=== PATIENT | female | born 1990 | race Asian ===

== ENCOUNTER 2025-01-05 14:53 | Emergency (ER) | payer MEDICAID, SELFPAY ==
--- NOTE | ~2025-01-05 | CT_ITS ---
EXAMINATION: CT HEAD WITHOUT CONTRAST CLINICAL INFORMATION: Dizziness COMPARISON: None available. TECHNIQUE: Contiguous axial imaging was performed from the skull base to vertex without intravenous administration of contrast. This CT examination was performed using dose optimization techniques as appropriate, variously including the following: *Automated exposure control *Adjustment of mA and/or kV according to patient size (this includes techniques or standardized protocols for targeted exams where dose is matched to indication/reason for exam; i.e. extremities or head) *Use of iterative reconstruction technique DLP: 624 FINDINGS: No acute intra-axial, extra-axial bleed, masses or midline shift. There is no acute infarct in evolution. The crane to white matter differentiation is maintained normal. The lateral ventricles are asymmetrical but normal size. Bone windows reveal no calvarial abnormality. There is no scalp soft tissue abnormality. Bilateral paranasal sinuses and mastoid air cells are well-aerated. Visualized bilateral optic globes, optic nerve and the periorbital soft tissues are normal. CT/CT head/brain wo IV con IMPRESSION: No acute intracranial process seen. Electronically signed by: Rodrigue Adams MD 01/05/2025 04:45 PM EDT
[2025-01-05 14:58] VITALS: BP 108/69; PULSE 76; RESP 18; TEMP 36.6; O2SAT 97; BMI 23.9
--- NOTE | 2025-01-05 14:59 | ECG_ITS ---
Test Reason : DIZZINESS Blood Pressure : */* mmHG Vent. Rate : 75 BPM Atrial Rate : 75 BPM P-R Int : 144 ms QRS Dur : 80 ms QT Int : 380 ms P-R-T Axes : 61 36 37 degrees QTcB Int : 424 ms Normal sinus rhythm Normal ECG No previous ECGs available Referred By: Jace Dallas Electronically Signed By: Connor Morgan
--- NOTE | 2025-01-05 15:00 | ED_ITS ---
HPI - General Adult General Chief complaint: Dizziness Stated complaint: Dizziness, Trouble with balance Time Seen by Provider: 01/05/25 16:35 Source: patient Mode of arrival: ambulatory Limitations: no limitations History of Present Illness HPI narrative: This is 54 years old with no past medical history presented to the emergency department ambulatory with a chief complaint of dizziness symptoms have been going on for about 4 days. She describes the dizziness as spinning also lightheadedness. She denies any nausea vomiting fever any other systemic symptoms Onset (ago): day(s) (4) Location: head Radiation: non-radiation Severity: mild Pain Consistency: constant Relieving factors: none Exacerbating factors: none Associated symptoms: denies other symptoms Related Data Previous Rx's ?Medication ?Instructions ?Recorded metoclopramide HCl 10 mg tablet 10 mg PO Q6H PRN nause a and 01/05/25 (Reglan) DIZNESS #15 tabs Allergies Allergy/AdvReac Type Severity Reaction Status Date / Time No Known Allergies Allergy Verified 01/05/25 15:00 Review of Systems 2 Constitutional: Constitutional: Denies fever(s) and Denies headache(s) ENT: Denies headache(s) Cardiovascular: Cardiovascular: Reports no additional cardiovascular complaints Neurologic: Denies headache(s) [facility] Past Medical History Attestation statement: The following information was validated with the patient. [facility] Narrative: She denies any past medical history she is 2 months Social History Social History Smoked in Last 30 Days: No Use of substances other than those prescribed or required for medical reasons: No Advance Directives: No Advance Directives Information Provided: Yes Physical Exam ED Exam Exam: On examination she looks well she is not toxic-appearing comfortable in the stretcher Vital Signs: Vital Signs - 24 hr 01/05/25 14:58 01/05/25 16:46 01/05/25 16:57 Temperature 97.9 F Pulse Rate 76 74 Respiratory Rate 18 16 Blood Pressure 108/69 96/61 99/63 Pulse Oximetry 97 98 Oxygen Delivery Method Room Air Room Air 01/05/25 18:29 Temperature Pulse Rate 68 Respiratory Rate 12 Blood Pressure 95/61 Pulse Oximetry 99 Oxygen Delivery Method Room Air BMI result Body Mass Index 23.9 Vital signs reviewed stable she is normotensive afebrile Const General: cooperative Nutritional Appearance: average body habitus Orientation/consciousness: oriented to person and patient oriented x3 Limitations: no limitations HENMT Head: Yes normal to inspection Ears: hearing grossly normal bilaterally General nose exam: Normal external nose present Face and sinus: Yes normal facial exam Mouth: Normal oral and palatal mucosa present Throat: Yes posterior oropharynx normal Neck Neck: Yes normal visual inspection and Yes full ROM Resp Effort & Inspection: normal respiratory effort Auscultation: clear to auscultation bilaterally Cardio Jugular venous distension: no JVD Rate: regular rate GI Inspection: Yes normal to inspection Palpation (GI): Soft to palpation, not firm and nontender Auscultation: normal bowel sounds Skin General skin exam: no rashes or lesions noted, elasticity normal and turgor normal Lesions: no lesions Rashes: no rashes Neuro General: oriented to person and patient oriented x3 Cranial nerves: Yes CN's II-XII intact bilaterally Coordination: [id number] test normal and [id number] test normal Extrem General: Yes normal to inspection and Yes full ROM Course Course Course Narrative: RME: 34-year-old female status post given 2 months ago presents to ED for 4 days of dizziness described as the room spinning and off-balance with nausea. Patient denies any slurred speech facial droop or paralysis of extremities. Patient denies any loss of vision. NIH score is 0. Labs EKG head CT scan ordered Reevaluation(s) Reevaluation #1: SHE REMAINED STABLE VITAL SIGNS ARE STABLE WORKUP IS ESSENTIALLY NEGATIVE, SHE STATES THE MECLIZINE MAKE HER WORSE YESTERDAY, WE ARE GOING TO TRY REGLAN. THE PATIENT AND COMFORTABLE WITH THE PLAN Time: 18:40 Medications Administered Discontinued Medications Generic Name Dose Route Start Last Admin Trade Name Cha PRN Reason Stop Dose Admin Acetaminophen 975 mg 01/05/25 18:17 01/05/25 18:24 Acetaminophen 325 Mg Tablet PO 01/05/25 18:18 975 mg ONCE ONE Administration Sodium Chloride 1,000 mls @ 999 mls/hr 01/05/25 17:00 01/05/25 17:22 Ns IVCONT 01/05/25 18:00 999 mls/hr .Q1H1M YKUI Administration Medical Decision Making Medical Decision Making MDM Narrative: Patient presented with the dizziness, neuro exam is normal, mtprhx-xl-atda is negative ,Skew test negative,hint exam also is normal AT 18:40 WORKUP NEGATIVE, SHE IS FEELING BETTER, I DO NOT THINK SHE HAS A CENTRAL ETIOLOGY OF THE DIZZINESS THIS HAS BEEN GOING ON FOR ABOUT 4 DAYS SHE HAS NO RISK FACTOR OF VASCULAR DISEASE. UNFORTUNATELY SHE STATES THAT MECLIZINE GIVEN YESTERDAY BY THE WHO IS RN MADE FEEL WORSE, AT THIS POINT I THINK WE COULD GIVE A TRY OF METOCLOPRAMIDE. PATIENT HAS BEEN COMFORTABLE WITH THE PLAN I TOLD HER TO FOLLOW-UP WITH THE PCP Differential Diagnosis Differential Diagnoses: The differential diagnosis associated with the presentation includes Differential diagnosis dehydration, peripheral vertigo, I do not think she has a central vertigo she has no risk factor in the exam shows no cerebellar normality Admission/Observation Consideration of admission/observation: Escalation of care including admission/observation considered Lab Data MDM Lab Attestation statement: I reviewed the patient's lab results. 01/05/25 15:08 01/05/25 15:08 Labs: Lab Results 01/05/25 01/05/25 Range/Units 15:08 15:14 WBC 7.4 (4.8-10.8) X10*3/uL RBC 5.03 (4.20-5.50) X10*6/uL Hgb 12.9 (12.0-16.0) g/dl Hct 40.6 (37.0-47.0) % MCV 80.7 (80.0-98.0) fL MCH 25.6 L (27.0-33.0) pg MCHC 31.8 (31.0-35.0) g/dl RDW 15.3 (11.0-16.0) % Plt Count 214 (160-400) X10*3/uL MPV 10.1 (9.4-12.3) fL Immature Gran % (Auto) 0.3 (0.0-0.4) % Neut % (Auto) 63.4 (45-73) % Lymph % (Auto) 27.5 (20-40) % [place] % (Auto) 6.9 (2-11) % Eos % (Auto) 1.5 (0-4) % Baso % (Auto) 0.4 (0-2) % Lymph # (Auto) 2.0 (1.2-4.9) X10*3/uL [place] # (Auto) 0.5 (0.1-1.2) X10*3/uL Eos # (Auto) 0.1 (0.0-0.4) X10*3/uL Baso # (Auto) 0.0 (0.0-0.2) X10*3/uL Abs Immat Gran (auto) 0.02 (0.00-0.03) X10*3/uL Absolute Neuts (auto) 4.7 (2.0-8.3) x10*3/uL Absolute Nucleated RBC 0.000 (0.0-0.012) X10*3/uL Nucleated RBC % (auto) 0.0 (0.0-0.2) /100WBC Sodium 140 (135-145) mmol/L Potassium 4.0 (3.3-5.1) mmol/L Chloride 106 (96-108) mmol/L Carbon Dioxide 26 (22-29) mmol/L Anion Gap 12 (12-20) BUN 14 (9-16) mg/dL Creatinine 0.55 (0.5-1.4) mg/dL Estim Creat Clear Calc 130.9 Estimated GFR > 60 Random Glucose 103 (60-115) mg/dL Calcium 9.4 (8.4-10.2) mg/dL Total Bilirubin 0.2 (0.0-1.0) mg/dL AST 33 H (5-31) U/L ALT 52 H (0-31) U/L Alkaline Phosphatase 68 (39-117) U/L Troponin I High Sens < 2.7 (<3.5-17.0) ng/L Total Protein 7.7 (6.5-8.0) g/dL Albumin 4.7 (3.5-5.0) g/dL Beta HCG, Quant < 2 mIU/mL Urine Color Yellow Urine Appearance Clear Urine pH 7.5 (5.0-9.0) Ur Specific [place] 1.010 (1.005-1.025) Urine Protein Negative (Neg-Trace) mg/dL Urine Glucose (UA) Negative (Negative) mg/dL Urine Ketones Negative (Negative) mg/dL Urine Blood Negative (Negative) Urine Nitrite Negative (Negative) Ur Leukocyte Esterase Negative (Negative) Independent Interpretation I performed an independent interpretation of an: EKG Interpretation: Electrocardiogram shows sinus rhythm rate [address]-T changes this is a normal EKG Discharge Plan Discharge Clinical Impression: Dizziness Patient Disposition: Home, Self-Care Instructions: Dizziness (ED) Additional Instructions: PLEASE FOLLOW-UP WITH YOUR PRIMARY CARE PHYSICIAN CALL AND MAKE AN APPOINTMENT, RETURN TO THE EMERGENCY ROOM IF YOU WORSE. WE ARE GOING TO GIVE YOU METOCLOPRAMIDE (REGLAN )TO TRY FOR THE DIZZINESS BECAUSE YOU DID NOT TOLERATE MECLIZINE Prescriptions: New metoclopramide HCl [Reglan] 10 mg tablet 10 mg PO Q6H PRN (Reason: nausea and DIZNESS) Qty: 15 0RF Referrals: Physician,Unknown J [Primary Care Provider, Medical] Interventions: ED Discharge Assessment Last Done: 01/05/25 18:53 Discharge Date/Time: 01/05/25 18:54 Print Language: Gabonese
[2025-01-05 15:21] LABS: MANUAL DIFF FLAG NO
[2025-01-05 15:29] LABS: Appearance Urine Clear; Glucose Urine UA Negative (Negative); PH 7.5 (5.0-9.0); Specific Gravity - Urine 1.010 (1.005-1.025)
--- NOTE | 2025-01-05 15:38 | MHC.EDTECH ---
Pt visibly shifting side to side when ambulating d/t dizziness, slightly unsteady, wheelchair given
[2025-01-05 15:52] LABS: Hematocrit 40.6 % (37.0-47.0); Hemoglobin 12.9 g/dl (12.0-16.0); Imm Gran Abs Auto 0.02 X10*3/uL (0.00-0.03); Imm Gran Pct Auto 0.3 % (0.0-0.4); Lymphocytes Absolute Auto 2.0 X10*3/uL (1.2-4.9); Mean Corpuscular HGB Conc 31.8 g/dl (31.0-35.0); Mean Corpuscular Hemoglobin 25.6 pg (27.0-33.0); Mean Corpuscular Volume 80.7 fL (80.0-98.0); NRBC Abs Auto 0.000 X10*3/uL (0.0-0.012); NRBC Pct Auto 0.0 /100WBC (0.0-0.2); Platelet Count 214 X10*3/uL (160-400); Red Blood Count 5.03 X10*6/uL (4.20-5.50); White Blood Count 7.4 X10*3/uL (4.8-10.8)
[2025-01-05 15:54] LABS: Alanine Aminotransferase 52 U/L (0-31); Albumin Level 4.7 g/dL (3.5-5.0); Anion Gap 12 (12-20); Aspartate Amino Transferase 33 U/L (5-31); Blood Urea Nitrogen 14 mg/dL (9-16); Calcium 9.4 mg/dL (8.4-10.2); Carbon Dioxide 26 mmol/L (22-29); Chloride 106 mmol/L (96-108); Creatinine Clr Calc Pharmacy 130.9; Estimated Glomerular Filt Rate > 60; Potassium 4.0 mmol/L (3.3-5.1); Sodium 140 mmol/L (135-145); Total Protein 7.7 g/dL (6.5-8.0)
[2025-01-05 15:57] LABS: Alkaline Phosphatase 68 U/L (39-117); Troponin-I High Sensitivity < 2.7 ng/L (<3.5-17.0)
[2025-01-05 16:46] VITALS: BP 96/61; PULSE 74; RESP 16; O2SAT 98
[2025-01-05 16:57] VITALS: BP 99/63
--- NOTE | 2025-01-05 17:33 | PC.NURSE ---
pt is alert and oriented, skin appropriate for ethnicity, respirations even and unlabored, pt reports since wednesday feeling dizzy, reports at times she is spinning in circles or other times just feeling lightheaded and feels like she is going to pass out, and having a hard time walking at times because feeling on steady on her legs, also reports a headache and vomiting, ns on the monitor, all neuro's intact
[2025-01-05 18:29] VITALS: BP 95/61; PULSE 68; RESP 12; O2SAT 99
--- OUTSIDE RECORDS SUMMARY | 2025-01-05 18:32 | XMS_ITS | Clinical Summary ---
Author Organization [facility] Address [address] [place] [id number] Phone Care Team Providers Care Cellar Supervisor Name Role Phone Hua High MD Primary Care Provider [phone] Allergies No known active allergies Medications PRENAT VIT [id number]-BQIG-[id number]-OM 3,6 ORAL Take by mouth. Active Active Problems Problem Noted Date Diagnosed Date Encounter for supervision of other normal , first trimester 05/20/2021 Overview (06/13/2021): CNM OB-CMI score: 0 [05/20/2021] Group PN care? * Rh pos GC/Chlam * PAP 09/13/20 NIL Tdap * Flu - declines 06/10 but may get in the fall COVID-19 - Pfizer x 2, has not had booster - counseled 06/10, she accepts. Has had COVID twice. Hgb * GTT * 28 wk Repeat RPR * GBS * PPBC * screening - NT negative Assessment & Plan (06/10/2021 10:26 AM EDT): Shiv is a 31 y.o. at 11 5/7 weeks Here for First OB visit. Feeling well. No nausea. Has breast tenderness. Still her daughter, she is almost 20 months old now. Flu shot - hasn't had for . Declines today but may accept in the fall for next season. COVID booster - counseled today on recommendation for booster. She will likely go get it. Shiv has had COVID twice - the first time was Jan 2020 and she was very sick. The second time was after her vaccine series and she had mild symptoms. Had NT and dating US this morning. CHRISTY 01/25/22 Urine culture sent today Early OB labs drawn today Encouraged to call with any questions/concerns. SHIRA in four weeks Female infertility 06/21/2018 Overview (05/20/2021): Current achieved with clomid Resolved Problems Problem Noted Date Diagnosed Date Resolved Date Abnormal uterine bleeding, 11/04/2019 05/20/2021 Assessment & Plan (11/04/2019 1:59 PM EDT): A: Heavy PP bleeding Pt hemodynamically stable No evidence of Retained POC P: Due to higher than expected bleeding, will do a course of Oral methergine Reviewed with pt to call with bleeding > pad/hr, with dizziness/lightheadedness or with s/s of infection (fever/chills) Reviewed POC with Dr Denise who agrees Normal intrauterine , antepartum 10/11/2019 05/20/2021 Normal labor 10/11/2019 05/20/2021 Abnormal ultrasound 08/11/2019 Overview (09/29/2019): Incomplete study, persistent right umbilical vein suspected and unable to visualize edge of placenta. Level II was recommended, patient declined due to concerns for Covid-19 09/28/19 Level II, confirms isolated persistent right umbilical vein. Otherwise normal anatomy, nml placenta - no previa. Pt had low risk screen. Per MFM isolated persistent right umbilical vein carries good prognosis. No further testing Assessment & Plan (09/28/2019 12:22 PM EDT): Level II today. Report not available at time of visit. Will call with recommendations PRN. Assessment & Plan (08/11/2019 4:43 PM EDT): Reviewed rationale for Level II, and discussed that persistent right umbilical vein may be associated with other congenital anomalies. We also discussed that it is not possible to rule out placenta previa or low-lying placenta based on her last U/S. I again recommended Level II U/S. Patient is amenable but states she is without health insurance until September 19. Will work with office to see if interim health insurance is possible (will connect to [facility]) Level II ordered - to be scheduled sofya or in September if unable to come in sooner Encounter for supervision of normal first in third trimester 02/28/2019 05/20/2021 Overview (09/30/2019): CNM Dating criteria- LMP Childbirth Ed? OB-CMI- none Group PN care Declines Rh POS GC/Chlam neg Tdap 09/28/19 Flu Declines Hgb none @35 WG - insurance lapse GTT none @35 WG - doing FS sugars GBS neg PPBC declined screening - low risk ERA Chart reviewed GL Assessment & Plan (10/05/2019 12:21 PM EDT): Shiv is doing well. Baby is very active. Questions about labor warnings and when to call answered. Strategies for early labor reviewed. Normal movement reviewed. She will have virtual visit next week and in person visit at 40 weeks. Assessment & Plan (09/28/2019 12:22 PM EDT): Shiv is doing well, no concerns. Having some occ'l pelvic discomfort - strategies reviewed. Discussed PPBC - she will not need anything; optimum intervals discussed briefly. GBS collected today. Discussed FM, PEC, and labor precautions. +FM. Denies LOF, VB, UCs. NV virtual in one week. Assessment & Plan (08/11/2019 4:46 PM EDT): Feels well. Has not been seen since April and currently reports lapse in insurance until 09/20/19. Will send message to front office to attempt to refer to [facility], as this would represent a significant gap in her care and hse is overdue for Level II U/S. She feels ample movement and denies contractions, vaginal bleeding. Tested blood glucose x 1 day (not 2 weeks as advised), but she is currently fasting for Ramadan and so results are unlikely to be accurate (eats one large meal between 8 and 10 pm): values she recorded are fasting 94, 2-hour postprandial 154 and 107. Ramadan ends this weekend, she was advised to begin checking QID for the first two weeks after she resumes normal diet. Will f/u with telemed in 2 weeks. Assessment & Plan (07/28/2019 2:59 PM EDT): Telemed with Shiv. Feeling well, no concerns. Lots of FM. Sometimes when she walks, her gluteal muscle hurts. Stretching, heat helps. Heartburn is better. Reviewed abl anatomy u/s (limited cardiac outflow tracts, ? persistent right umbilical vein and unable to visualize the placental edge); pt canceled L2 u/s d/t concerns for Covid 19. Reviewed possible implications and offered L2 now - she declines. She is not comfortable doing GDM d/t evangelical fasting right now. Risks of undiagnosed GDM include macrosomia (shoulder dystocia and associated risks, hypoglycemia, asthma and DM 2), polyhydramnios (cord accidents, malposition, PTL/PTD), DM2, and blood pressure disorders. No validated alternative to GTT, but discussed r/b of: 1) random glucose, 2) at-home BG monitoring 4x daily x 14 days, 3) not testing at all. Pt has a kit at home and opts to test BG 2x daily: once during fast, and once after the evening meal. She will track the numbers and review with a CNM in two weeks. Discussed FM, PTL, PEC, and labor precautions. +FM. Denies LOF, VB, UCs. She has a BP cuff at home and will check before visits. NV in two weeks, then in-person at 34w. Assessment & Plan (05/18/2019 1:58 PM EST): Shvi is here doing well. Denies VB/LOF/Ctxs. Feeling little flutter. Declines AFP. Will schedule U/S for anatomy scan. Discussed GPC - declines for now. Will let us know if she is interested. Assessment & Plan (04/20/2019 12:14 PM EST): Shiv is doing well, here with her . She has no questions/ concerns. We reviewed nml intake labs and low risk first trimester screen. Will schedule anatomy scan at her next visit. Have decided on CNM care. PE deferred as pt is up to date on pap- will bring records to her next visit. Immunizations Immunization Administration Dates Next Due COVID-19 (Pre-01/11) Pfizer Vaccine, mRNA, PF Tdap 09/28/2019 Family History Medical History Relation Comments Diabetes Father No Known Problems Maternal Grandfather No Known Problems Maternal Grandmother No Known Problems Mother No Known Problems Paternal Grandfather No Known Problems Paternal Grandmother Relation Status Comments Father Maternal Grandfather Maternal Grandmother Mother Paternal Grandfather Paternal Grandmother Social History Tobacco Use Types Packs/Day Years Used Date Smoking Tobacco: Never Smokeless Tobacco: Never Alcohol Use Standard Drinks/Week Comments Not Currently 0 (1 standard drink = 0.6 oz pur e alcohol) Education Answer Date Recorded Are you interested in more education? Not on shaina e 07/17/2022 Are you concerned about learning? Not on file 07/17/2022 No 07/17/2022 No 07/17/2022 Digital Access Answer Date Recorded No 08/15/2022 No 08/15/2022 No 08/15/2022 Reliable internet access at home? Not on file 08/15/2022 Device with a working camera? Not on file Education Answer Date Recorded What is the highest level of school you have completed or the highest degree you have received? 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 Not on file Not on file Last Filed Vital Signs Vital Sign Reading Time Taken Comments Blood Pressure 100/60 06/10/2021 9:55 AM EDT Pulse 73 10/13/2019 7:50 AM EDT Temperature 36.6 C (97.9 F) 10/13/2019 7:50 AM EDT Respiratory Rate 18 10/13/2019 7:50 AM EDT Oxygen Saturation 99% 10/13/2019 7:50 AM EDT Inhaled Oxygen Concentration - - Weight 62.1 kg (137 lb) 06/10/2021 9:55 AM EDT Height 170.2 cm (5' 7 ) 10/31/2019 3:12 PM EDT Body Mass Index 21.46 10/31/2019 3:12 PM EDT Plan of Treatment Health Maintenance Due Date Last Done Comments DEPRESSION SCREENING 2003 PAP SMEAR 09/14/2023 09/13/2020 INFLUENZA VACCINE (#1) 2024 COVID-19 VACCINE (3 - 2024-2 6 season) 2024 08/07/2020, 07/16/2020 Adult Td,Tdap Booster 09/27/2029 09/28/2019 SMOKING STATUS SCREENING (On ce After 26 Yrs) Completed 05/20/2021 HEPATITIS C SCREENING Completed 06/10/2021 , 04/03/2019, 06/21/2018 HIV ONE-TIME SCREENING (18-6 5 YEARS) Completed 06/10/2021 HEPATITIS A VACCINES Aged Out No long er eligible based on patient's age to complete this topic HIB VACCINES Aged Out No longer eligi ble based on patient's age to complete this topic MENINGOCOCCAL VACCINES (ACWY) Aged Out No longer eligible based on patient's age to complete this topic MENINGOCOCCAL VACCINES (B) Aged Out N o longer eligible based on patient's age to complete this topic PNEUMOCOCCAL VACCINES (0-49 years) Aged Out No longer eligible b ased on patient's age to complete this topic Medical Devices Not on file Procedures Procedure Name Priority Date/Time Associated Diagnosis Comments HEPATITIS C ANTIBODY, QUALITATIVE Routine 06/10/2021 9:40 AM EDT Encounter for supervision of other normal , first trimester PAP TEST Routine 09/13/2020 12:00 AM EDT from Last 3 Months or Most Recently Relevant to Health Maintenance Results * Hepatitis C antibody, qualitative (06/10/2021 9:40 AM EDT) HCV NON-REACTIV E NON-REACTI VE [facility] Blood 06/10/2021 9:40 AM EDT 06/10/2021 9:44 AM EDT us Belkis Pizarro CNM LAB BLOOD ORDERABLES Final Re sult Performing Organization Address City/[facility] Co de Phone Number [address] [address] * Pap Smear (09/13/2020 12:00 AM EDT) 09/13/2020 09/16/2020 9:3 6 AM EDT Narrative SEE NARRATIVE - 09/25/2020 10:59 AM EDT [address] [address] Cash Applications Representative: Isabel Wallis MD RAILROAD BRAKE OPERATOR Cytology Report FINAL DIAGNOSIS A. PAP SMEAR (SUREPATH) CE: SPECIMEN ADEQUACY: Satisfactory for evaluation; transformation zone present. INTERPRETATION: NEGATIVE FOR INTRAEPITHELIAL LESION OR MALIGNANCY. Reactive changes. Reactive endocervical cells. Electronically Signed Out By: MD Darshan Barnes CT(ASCP) By his/her signature above, the pathologist listed as making the Final Diagnosis certifies that he/she has personally reviewed this case and confirmed or corrected the diagnosis. The Pap test is a screening test primarily for squamous cancers and precursors and has associated false-negative and false-positive results. New technologies such as liquid-based preparations may decrease but will not eliminate all false-negative results. Regular sampling and follow-up of unexplained clinical signs and symptoms are recommended to minimize false negative results. CLINICAL HISTORY Date of Last Menstrual Period: 08-29-2020 Menstrual History: Post Other Clinical Conditions: Screening Pap SPECIMEN SOURCE A: PAP SMEAR (SUREPATH) CE Patient Name: SHIV JOHNSON : 1990 (Age: 30) Sex: F Institution: [facility] Location: [facility] Date of Collection: 09/13/2020 Date of Reported: 09/25/2020 10:59 Results to: Judi Camacho CNM Judi Camacho CNM CYTOLOGY ORDERABLES Anabelle l Result Performing Organization Address City/[facility]/ZIP Co de Phone Number SEE NARRATIVE from Last 3 Months or Most Recently Relevant to Health Maintenance Insurance O O O HMO HMO HMO HMO HMO Member Subscriber Plan / Payer (Ef fective 2019-Present) Name:Shiv Johnson Relation to Subscriber:Spouse Name:BAO SIMONS Date of :1900 (Home) Address: [address] [place] [address] Payer ID:Not on file Type:HMO Address: [place] [id number] [place] [address] HMO Advance Directives For more information, please contact: [phone] (9AM - 5PM [facility], Wednesday-Wednesday) Documents on File Type Date Recorded Patient Management Trainer Expl anation Healthcare Proxy 10/16/2019 9:10 AM * Full Code (Presumed) (Latest Code Status on File) Date Activated Date Inactivated Comments 10/11/2019 8:48 PM * Full Code (Presumed) Date Activated Date Inactivated Comments 10/11/2019 11:42 AM 10/11/2019 8:48 PM Care Teams Cellar Supervisor Relationship Specialty Start Date End Date Hua High MD [address] [place] [address] [address] [place] [address] PCP - General Internal Medicine 04/18/18 Additional Source Comments The information contained in this document represents components of the legal health record. It is not the complete legal health record.[facility]
--- OUTSIDE RECORDS SUMMARY | 2025-01-05 18:32 | XMS_ITS | Clinical Summary ---
Author Organization [employer] Address [address] [facility] [address] [place] [address] Care Team Providers Care Laboratory Assistant Name Role Phone Unavailable Primary Care Provider Unavailabl e Encounters Date Type Department Care Team Description 10/10/2024 Population Health Risk Score [facility] (C[facility]) Department [address] [facility] [address] [place] [id number] Provider, Population Health Generic from Last 3 Months Social History Tobacco Use Types Packs/Day Years Used Date Smoking Tobacco: Never Assessed Comments Unknown Sex and Gender Information Value Date Recorded Sex Assigned at Not on file Legal Sex Female 1:42 PM EDT Gender Identity Not on file Sexual Orientation Not on file Plan of Treatment Health Maintenance Due Date Last Done Comments Depression Screening 1991 HIV Screening 1991 SDOH Screening 1991 Disability Screening 1991 Alcohol/Substance Use Screening 2003 Tobacco Screening 2003 Family Planning (PISQ) 2006 HPV Vaccines (1 - 3-dose series) 2006 Hepatitis C Screening 2009 Hepatitis B Vaccines (1 of 3 - 19+ 3-dose series) 2010 Pap Smear 02/25/2012 Cervical Cancer Screening 2021 HPV/Cotest 2021 COVID-19 Vaccine (2 - 2024-2 6 season) 2024 07/16/2020 Influenza Vaccine (#1) 2024 DTaP/Tdap/Td Vaccines (2 - T d or Tdap) 09/27/2029 09/28/2019 Zoster Vaccines (1 of 2) 2041 RSV Patients and Pa tients Aged 60 years or older (1 - 1-dose 75+ series) 2066 HIB Vaccines Aged Out No longer eligi ble based on patient's age to complete this topic Hepatitis A Vaccines Aged Out No long er eligible based on patient's age to complete this topic IPV Vaccines Aged Out No longer eligi ble based on patient's age to complete this topic Meningococcal B Vaccine Aged Out No l onger eligible based on patient's age to complete this topic Meningococcal Vaccine Aged Out No ruddy davidson eligible based on patient's age to complete this topic Pneumococcal Vaccine: Pediat rics (0 to 5 Years) and At-Risk Patients (6 to 49) Years Aged Out No longer eligi ble based on patient's age to complete this topic RSV under 20 months Aged Out No longe r eligible based on patient's age to complete this topic Rotavirus Vaccines Aged Out No longer eligible based on patient's age to complete this topic
[2025-01-05 18:53] VITALS: BP 95/61; PULSE 68; RESP 12; TEMP -17.7; TEMP 0; O2SAT 99
== END 2025-01-05 18:54 | disposition home or self-care (01) ==
PROVIDERS: Physician Assistant; Emergency Provider Emergency Medicine
DX: R42 Dizziness and giddiness (principal); R26.81 Unsteadiness on feet; R11.0 Nausea; Z79.899 Other long term (current) drug therapy
CPT/HCPCS: 36415; 70450; 80053; 81003; 84484; 84702; 85025; 93005; 99284; 99285

== ENCOUNTER → 2025-01-05 14:59 | Outpatient (BNV) | payer MEDICAID, SELFPAY | PROVIDERS: Emergency Provider Emergency Medicine; Visit Provider Radiology Diagnostic Radiology | DX: R42 Dizziness and giddiness (principal) | CPT/HCPCS: 70450 ==

== ENCOUNTER → 2025-01-05 14:59 | Outpatient (BNV) | payer MEDICAID, SELFPAY | PROVIDERS: Emergency Provider Emergency Medicine; Visit Provider Internal Medicine Cardiovascular Disease | DX: R42 Dizziness and giddiness (principal) | CPT/HCPCS: 93010 ==